=== PATIENT | male | born 1990 | race Caucasian/White ===

== ENCOUNTER 2017-05-14 14:27 | Emergency (ER) | payer BC, OTHER ==
[~2017-05-14] VITALS: Wt 134.0 kg
[2017-05-14] MEDS ORDERED: ACETAMINOPHEN 500 MG TAB PO STA (16:40)
[2017-05-14] MEDS ORDERED: KETOROLAC 30 MG INJ IM STA (16:40)
[2017-05-14] MEDS ORDERED: predniSONE 20 MG TAB PO ONE (17:00)
[2017-05-14] MEDS ORDERED: IBUP-1542 PO (17:02)
[2017-05-14] MEDS ORDERED: HYDR-906 PO (17:02)
[2017-05-14] MEDS ORDERED: PRED20TA PO (17:03)
--- NOTE | 2017-05-14 17:24 | ERD ---
ER Documentation Chief Complaint Chief Complaint r. sided facial swelling, feels feverish, hx of chipped tooth, on antbx tx. HPI Patient is a 26-year-old male who presents to the ED for concerns of tooth pain and right-sided jaw swelling 3 days. Patient states that he went to school's health clinic at [facility] earlier today was prescribed Augmentin. Patient reports taking 1 dose thus far. Patient states that his pain is worsening. Patient states he has an appointment scheduled with a dentist next Friday for dental extraction. Patient also reports feeling feverish, does not recall temperature. Patient states last took Tylenol at 8 AM. Patient denies any nausea, vomiting, chest pain, shortness of breath, loss of consciousness. Patient denied any falls or trauma. ROS All systems reviewed and are negative except as per history of present illness. Medications Home Meds Active Scripts Prednisone* (Prednisone*) 20 Mg Tab, 60 MG PO DAILY for 4 Days, TAB Prov:EDITH TALLEY PA-C 05/14/17 Hydrocodone/Acetaminophen ([place] 5-325 Tablet) 1 Each Tablet, 1 TAB PO Q6H Y for PAIN, #7 TAB Prov:EDITH TALLEY PA-C 05/14/17 Ibuprofen* (Motrin*) 600 Mg Tab, 600 MG PO Q6, #30 TAB Prov:EDITH TALLEY PA-C 05/14/17 Allergies Allergies: Coded Allergies: No Known Allergy (Unverified , 05/14/17) PMhx/Soc Medical and Surgical Hx: pt denies Medical Hx, pt denies Surgical Hx Hx Alcohol Use: No Hx Substance Use: No Hx Tobacco Use: No Smoking Status: Never smoker Physical Exam Vitals Vital Signs Date Time Temp Pulse Resp B/P Pulse Ox O2 Delivery O2 Flow Rate FiO2 05/14/17 17:36 98.9 99 20 140/86 98 05/14/17 14:36 100.5 105 20 144/94 98 Physical Exam GENERAL: Well-developed, well-nourished male. Appears in no acute distress. Speaking in full sentences. HEAD: Normocephalic, atraumatic. EYES: Pupils are equally reactive bilaterally. EOMs grossly intact. No conjunctival erythema. ENT: Moist mucous membranes. No uvula deviation. No kissing tonsils. Right lower molars with numerous dental caries, last dental molar chipped. Poor dentition noted. Teeth are tender to palpation. No trismus. No drooling. Minimal swelling noted at R lower jaw. NECK: Supple. No meningismus. Normal range of motion of the neck. LUNG: Clear to auscultation bilaterally. No rhonchi, wheezing, rales or coarse breath sounds. HEART: Regular rhythm. Slightly tachycardic. No murmurs, rubs or gallops. EXTREMITIES: Equal pulses bilaterally. No peripheral clubbing, cyanosis or edema. No unilateral leg swelling. NEUROLOGIC: Alert and oriented. Moving all four extremities without any difficulty. Normal speech. Steady gait. SKIN: Normal color. Warm and dry. No rashes or lesions. Results 24 hrs Current Medications Medications (Trade) Dose Ordered Sig/Marcus Route PRN Reason Start Time Stop Time Status Last Admin Dose Admin Ketorolac Tromethamine (Toradol) 30 mg ONCE STAT IM 05/14/17 16:40 05/14/17 16:41 DC 05/14/17 16:50 Acetaminophen (Tylenol Tab) 1,000 mg ONCE STAT PO 05/14/17 16:40 05/14/17 16:41 DC 05/14/17 16:50 Prednisone (Prednisone) 60 mg ONCE ONCE PO 05/14/17 17:00 05/14/17 17:01 DC 05/14/17 16:50 Procedures/MDM ED COURSE: The patient was stable throughout ED course. I kept the patient and/or family informed of laboratory and diagnostic imaging results throughout the ED course. MEDICATIONS GIVEN: Toradol, Tylenol, prednisone Patient tolerated medication well with no adverse reactions. Patient reported improvement in pain. MEDICAL DECISION MAKING: This is a 26-year-old male who presents with right lower molar tooth pain and right jaw swelling. Patient was started on Augmentin earlier today. Patient reported taking 1 dose thus far. Vital signs were reviewed. Patient was febrile at initial presentation with a temperature 100.5F. Patient's temperature was noted to be downtrending prior to discharge. Patient was not hypoxic. The patient did not have trismus, muffled voice, uvula deviation, unilateral tonsillar swelling, or drooling. Patient was given Toradol, Tylenol and prednisone here in the ED. Given these findings, the patient's presentation is most consistent with dental caries and right lower jaw swelling. I have a much lower clinical suspicion for epiglottitis, strep pharyngitis, peritonsillar abscess, retropharyngeal abscess, Jez's angina, tooth fracture, bleeding dental socket, periodontal abscess, ulcerative gingivitis, jaw fracture, trauma. I doubt sepsis at this time. Prior to discharge, patient stated his symptoms were significantly improved. Patient was nontoxic, [id number] prior to discharge. PRESCRIPTIONS: Ibuprofen, [place], prednisone Patient was advised to continue Augmentin. Patient advised to return in 2 days for recheck. DISCHARGE: At this time, patient is stable for discharge and outpatient management. I have instructed the patient to see a dentist today or tomorrow. I have instructed the patient to promptly return to the ER at any time for any new or worsening symptoms including increased pain, fever, swelling, neck swelling, neck stiffness, drooling or difficulty breathing. The patient and/or family expressed understanding of and agreement with this plan. All questions were answered. Home care instructions were provided. Patients blood pressure was elevated (>120/80) but appears stable without evidence of hypertensive emergency, hypertensive urgency or end-organ failure. I had discussion with the patient about the risks of hypertension. I have advised the patient to follow up with his/her primary care physician for outpatient monitoring and treatment for hypertension in 2-3 days. I have instructed the patient to return to the ER for any new or worsening symptoms including chest pain, shortness of breath, headache, blurred vision, confusion, nausea, vomiting or LOC. Disclaimer: Inadvertent spelling and grammatical errors are likely due to EHR/ dictation software use and do not reflect on the overall quality of patient care. Also, please note that the electronic time recorded on this note does not necessarily reflect the actual time of the patient encounter. Departure Diagnosis: Primary Impression: Pain due to dental caries Additional Impression: Swelling of right side of face Condition: Stable Patient Instructions: Understanding Tooth Decay, Tooth Abscess Referrals: COMMUNITY CLINICS YOU HAVE RECEIVED A MEDICAL SCREENING EXAM AND THE RESULTS INDICATE THAT YOU DO NOT HAVE A CONDITION THAT REQUIRES URGENT TREATMENT IN THE EMERGENCY DEPARTMENT. FURTHER EVALUATION AND TREATMENT OF YOUR CONDITION CAN WAIT UNTIL YOU ARE SEEN IN YOUR DOCTORS OFFICE WITHIN THE NEXT 1-2 DAYS. IT IS YOUR RESPONSIBILITY TO MAKE AN APPOINTMENT FOR FOLOW-UP CARE. IF YOU HAVE A PRIMARY DOCTOR --you should call your primary doctor and schedule an appointment IF YOU DO NOT HAVE A PRIMARY DOCTOR YOU CAN CALL OUR PHYSICIAN REFERRAL HOTLINE AT IF YOU CAN NOT AFFORD TO SEE A PHYSICIAN YOU CAN CHOSE FROM THE FOLLOWING [facility] [address] [place] [address] [facility] [address] [facility] [address] [facility] [address] [facility] [facility] [address] [facility] [facility] YOU HAVE RECEIVED A MEDICAL SCREENING EXAM AND THE RESULTS INDICATE THAT YOU DO NOT HAVE A CONDITION THAT REQUIRES URGENT TREATMENT IN THE EMERGENCY DEPARTMENT. FURTHER EVALUATION AND TREATMENT OF YOUR CONDITION CAN WAIT UNTIL YOU ARE SEEN IN YOUR DOCTORS OFFICE WITHIN THE NEXT 1-2 DAYS. IT IS YOUR RESPONSIBILITY TO MAKE AN APPOINTMENT FOR FOLOW- CARE. IF YOU HAVE A PRIMARY DOCTOR --you should call your primary doctor and schedule and appointment IF YOU DO NOT HAVE A PRIMARY DOCTOR YOU CAN CALL OUR PHYSICIAN REFERRAL HOTLINE AT . IF YOU CAN NOT AFFORD TO SEE A PHYSICIAN YOU CAN CHOSE FROM THE FOLLOWING [facility]: [facility] [address] [place] [address] [facility] [address] [place] [address] [facility] [address] [place] [address] [facility] DENTIST ([facility] walk in clinic) Additional Instructions: Call your DENTIST TOMORROW for an appointment during the next 1-2 days. Move up your appointment. If unable to get in and see [facility] dentist. See referral information. See the doctor sooner or return here if your condition worsens before your appointment time. Return in 2 days for recheck. Continue antibiotics as prescribed. EDITH TALLEY PA-C May 14, 2017 17:24
[2017-05-14 17:36] VITALS: BP 140/86; PULSE 99; RESP 20; TEMP 98.9
== END 2017-05-14 17:38 | disposition home or self-care (01) ==
LOC: E/R 14:27
DX: K02.9 Dental caries, unspecified (principal); R60.0 Localized edema
CPT/HCPCS: 96372; 99284; J1885; J7512